=== PATIENT | female | born 1955 | race Caucasian/White ===

== ENCOUNTER 2016-12-06 10:52 | Outpatient (CLI) | payer BC ==
[2016-12-06 12:52] LABS: BASOPHILS % 0.6 (0.0-1.5); EOSINOPHILS % 1.5 % (0.0-6.8); MEAN CORPUSCULAR HEMOGLOBIN 29.3 pg (28.0-34.0); MONOCYTES # 0.4 # k/uL (0.0-0.9); MONOCYTES % 5.1 % (0.0-11.0); NEUTROPHILS # 4.6 # k/uL (1.4-7.7)
[2016-12-06 12:55] LABS: APPEARANCE,URINE Clear (CLEAR); COLOR,URINE Yellow (YELLOW); OCCULT BLOOD,URINE Negative (NEGATIVE); UROBILINOGEN URINE 0.2 Eu (0.2-1.0)
[2016-12-06] MEDS ORDERED: HEPARIN SODIUM,PORCINE 30 UNITS INJ IV ONE (13:00)
[2016-12-06] MEDS ORDERED: SALINE FLUSH 10 ML DISP.SYRIN IVF ONE (13:00)
[2016-12-06 13:14] LABS: eGFR (African) > 60; eGFR (Non-African) > 60
--- NOTE | 2016-12-06 16:02 | Diagnostic Imaging Report ---
NAVNEET COYNE [facility] [address] [facility] [address] [address] Report Submission Date: Dec 06, 2016 3:24:49 PM MODEL HOME SALES GREETER Patient Study Name: SATYA KC Date: Dec 06, 2016 11:13:42 AM MODEL [employer]ER Modality Type: CR Gender: F Description: ABDOMEN : 51 Institution: [facility] Physician: NAVNEET COYNE Supine abdomen History: 2 months of low abdominal pain Findings: Multilevel lumbar spondylosis and moderate colonic stool are observed. There is no bowel obstruction. A 3 mm calcification projects over the left renal silhouette. Impression: Mild constipation and possibly small left renal stone. Electronically signed on Dec 06, 2016 3:24:49 PM MODEL [employer] SALES GREETER by: Janes VILLAVICENCIO
--- NOTE | 2016-12-06 16:03 | Diagnostic Imaging Report ---
NAVNEET COYNE [facility] [address] [facility] [address] [address] Report Submission Date: Dec 06, 2016 3:25:52 PM BOOK CLEANER Patient Study Name: SATYA KC Date: Dec 06, 2016 11:26:54 AM BOOK CLEANER Modality Type: CR Gender: F Description: LOWER EXTREMITY : 51 Institution: [facility] Physician: NAVNEET COYNE Right knee 3 views History: 3 months of the anterior knee pain Findings: A moderate suprapatellar joint effusion and mild to moderate patellofemoral osteoarthritic spurring are observed. There is no fracture or dislocation. Joint space narrowing and subchondral sclerosis are observed in the medial femorotibial compartment. Impression: Two compartment right knee osteoarthritis and moderate joint effusion. Electronically signed on Dec 06, 2016 3:25:52 PM BOOK CLEANER by: Janes VILLAVICENCIO
[2016-12-06 23:51] LABS: LIPASE 63 U/L (13-60)
== END 2016-12-06 10:53 ==
LOC: LAB 10:52 → INF 10:53
PROVIDERS: ATTEND Family Medicine
DX: R10.84 Generalized abdominal pain (principal); M25.561 Pain in right knee; D68.9 Coagulation defect, unspecified; C50.919 Malignant neoplasm of unspecified site of unspecified female breast
CPT/HCPCS: 36415; 73562; 74000; 80053; 81002; 83690; 85025; 85610; 85730; 96523

== ENCOUNTER 2016-12-11 08:53 | Outpatient (CLI) | payer BC | END 2016-12-11 08:54 | LOC: CANPRECLI → RAD 08:53 | PROVIDERS: ATTEND Family Medicine | DX: Z53.9 Procedure and treatment not carried out, unspecified reason (principal) ==

== ENCOUNTER 2017-02-19 13:46 | Outpatient (CLI) | payer BC ==
[2017-02-19] MEDS ORDERED: HEPARIN SODIUM 500 UNIT/5 ML DISP.SYRIN IV ONE (14:00)
[2017-02-19] MEDS ORDERED: SALINE FLUSH 10 ML DISP.SYRIN IVF ONE (14:00)
== END 2017-02-19 13:47 ==
LOC: LAB 13:46
PROVIDERS: ATTEND Nurse Practitioner Adult Health
DX: K59.00 Constipation, unspecified (principal); R10.9 Unspecified abdominal pain; R14.0 Abdominal distension (gaseous); Z12.11 Encounter for screening for malignant neoplasm of colon
CPT/HCPCS: 82784; 83516; J1642

== ENCOUNTER 2017-02-25 07:53 | Day surgery (SDC) | payer BC ==
--- NOTE | 2017-02-25 12:05 | GI Report ---
REFERRING PHYSICIAN: Dr. Margo Ellis JAVA SOFTWARE DEVELOPER: Castro Butler MD PROCEDURE MEDICATION: Propofol as per anesthesia. INDICATIONS: A 61-year-old woman is referred. She has had change in her bowel habits. She tends more toward constipation. This is a screening. She has never had her colon looked at before. She denies bleeding. She was tried on Linzess 145 mcg and apparently it made her symptoms worse as far as a lot of cramps. Family history with father who has Crohn's disease and had surgery. PROCEDURE PERFORMED: Colonoscopy. PROCEDURE: An Olympus video colonoscope was advanced to the rectum. A very atonic redundant colon and it took some maneuvering to finally reach the cecum. The appendiceal orifice is normal. One glimpse in the terminal ileum looked normal. On slow withdrawal, we had to lavage and suction a number of areas to help clear the prep. The ascending colon and transverse colon had redundancy. No obvious intraluminal lesions noted. Descending colon and sigmoid, again, redundancy. No obvious intraluminal lesions were noted. Retroflexion of the rectum was normal. Patient tolerated the procedure well. FINDINGS: Atonic redundant colon to the cecum and a glimpse of the terminal ileum was also normal. RECOMMENDATIONS: 1. Would increase fiber in the diet. 2. Add MiraLAX. 3. Consider re-looking at her colon within 10 years, sooner if clinically indicated. cc: Dr. Margo VILLAVICENCIO
== END 2017-02-25 07:54 ==
LOC: OPSURG 07:53
PROVIDERS: ATTEND Internal Medicine Gastroenterology
DX: Z12.11 Encounter for screening for malignant neoplasm of colon (principal); K59.00 Constipation, unspecified; K59.8 Other specified functional intestinal disorders; Z83.79 Family history of other diseases of the digestive system
CPT/HCPCS: 45378; J7120

== ENCOUNTER 2017-07-09 12:55 | Outpatient (CLI) | payer BC ==
--- NOTE | 2017-07-09 15:20 | Diagnostic Imaging Report ---
NAVNEET COYNE [facility] [address] [facility] [address] [place], [place]. [address] Report Submission Date: Jul 09, 2017 2:40:25 PM CDT Patient Study Name: SATYA KC Date: Jul 09, 2017 1:22:58 PM CDT Modality Type: CT\SR Gender: F Description: CT ABD & PELVIS W/O CO : 51 Institution: [facility] Physician: NAVNEET COYNE Examination: CT Abdomen/pelvis History: Left-sided discomfort. The wall the Comparison exams: None available Technique: CT Abdomen/pelvis without contrast protocol. Findings: Liver, spleen, adrenal glands, pancreas and gallbladder are without irregularity given exam technique. No gallstone. Kidneys demonstrate 3 mm calyceal calcifications bilaterally. Ureters are nondilated in their course through the abdomen and pelvis. No central calcifications. Bladder margins without gross abnormality. Pelvic phleboliths. Abdominal aorta without aneurysmal dilation or peripheral sclerotic disease. Cardiac silhouette not enlarged. Bowel without contrast limiting evaluation. No evidence for acute mesenteric inflammation or free air. Stool throughout the large bowel limiting sensitivity. Osseous structures demonstrate degenerative changes. Lung bases parenchymal scarring. No effusion. Absence of the right breast. Impression: Bilateral nephrolithiasis. No evidence for ureterolithiasis. No evidence for acute abdominal inflammatory process. No gallstone. No abnormal bowel dilation. Prior right mastectomy. Electronically signed on Jul 09, 2017 2:40:25 PM CDT by: Shayan VILLAVICENCIO
== END 2017-07-09 12:56 ==
LOC: RAD 12:55
PROVIDERS: ATTEND Family Medicine
DX: N20.0 Calculus of kidney (principal)
CPT/HCPCS: 74176

== ENCOUNTER 2018-01-28 15:58 | Outpatient (CLI) | payer BC ==
--- NOTE | 2018-01-28 17:37 | Diagnostic Imaging Report ---
ALISSON GASTELUM [facility] [address] [facility] [address] Report Submission Date: Jan 28, 2018 5:34:24 PM CDT Patient Study Name: SATYA KC Date: Jan 28, 2018 4:50:38 PM CDT Modality Type: DX Gender: F Description: SPINE : 51 Institution: [facility] Physician: ALISSON GASTELUM Examination: Plain film lumbar spine History: PAIN IN LOW BACK AFTER FALL X 1 WEEK AGO (Hx) Findings: 3 views of the lumbar spine demonstrate osteopenia. Anterior narrowing of L1 by approximately 30 to 40%. Scattered osteophytes and disc space narrowing. Slight curvature to the right. Significant stool within the overlying large bowel. Impression: L1 compression deformity compression deformity: Approximately 30 to 40% - chronicity indeterminate without older exams. Generalized degenerative changes, osteopenia, and curvature. Significant large bowel stool - constipation. Electronically signed on Jan 28, 2018 5:34:24 PM CDT by: Shayan VILLAVICENCIO
== END 2018-01-28 16:00 ==
LOC: RAD 15:58
PROVIDERS: ATTEND Physician Assistant
DX: M54.5 Low back pain (principal); W19.XXXA Unspecified fall, initial encounter; Y92.9 Unspecified place or not applicable
CPT/HCPCS: 72100

== ENCOUNTER 2018-02-15 20:13 | Emergency (ER) | payer BC ==
[2018-02-15] MEDS ORDERED: ONDANSETRON HCL/PF 4 MG/ 2ML VIAL IVP ONE (20:27)
[2018-02-15] MEDS ORDERED: MORPHINE SULFATE 4 MG/ML PREFILLED SYR IVP ONE ×2 (20:27→20:46)
[2018-02-15] MEDS ORDERED: 0.9 % SODIUM CHLORIDE 1,000 ML IV ONE (20:27)
--- NOTE | 2018-02-15 20:37 | ED Physician Documentation ---
Fall - HISTORIAN Historian: patient - HPI Stated Complaint: Recent weakness, today with temp and fall causing LBP Chief Complaint: Fall Additional Information: Fell at home just prior to arrival in ER per EMS. She's not sure what made her fall or how she landed. Fell onto carpet. Denies LOC. Low back hurts. No new numbness or tingling since the fall. Completed chemo for breast cancer in January. Has been falling frequently. Has had neuropathies in the last few weeks. Urinated only 1-2 x today. Onset: just prior to arrival Where: home Associated Symptoms:: no loss of consciousness Location of Pain/Injury: lower back - ROS CONST: fever (100.5 on arrival in ER) - PAST HX Past History: other (breast cancer) Allergies/Adverse Reactions: Allergies Allergy/AdvReac Type Severity Reaction Status Date / Time codeine AdvReac Unknown Nausea/Vomi Verified 02/15/18 20:29 ting - SOCIAL HX Smoking History: non-smoker - FAMILY HX Family History: no significant history - VITAL SIGNS Vital Signs: Vital Signs Temp Pulse Resp BP Pulse Ox 100.5 F H 128 H 18 141/63 96 02/15/18 20:14 02/15/18 20:14 02/15/18 20:14 02/15/18 20:14 02/15/18 20:14 - REVIEWED ASSESSMENTS Nursing Assessment Reviewed: Yes Vitals Reviewed: Yes Progress - Progress Progress: 2243, phone call from radiologist, Dr. Ritter. Pt has acute compression fx L1 with retropulsion into spinal canal, with 15% reduction of spinal canal Name: SATYA KC Date: February 15, 2018 9:50:00 PM CDT Modality Type: CT\SR Gender: F Description: CT L-SPINE W/O CONTRAS : 51 Institution: [facility] Physician: JUAN CESAR - ER CT lumbar spine Date of examination: February 15, 2018. CLINICAL HISTORY: FALL; LUMBAR PAIN; RECENT CHEMO (Hx) / ITS.REASON fall, recent chemo, lumbar pain TECHNIQUE: 3 mm contiguous axial images of the lumbar spine with sagittal and coronal reconstructions. FINDINGS: There is slight right lumbar scoliosis. A compression fracture of the L1 vertebral body is present with posterior retropulsion bone into the spinal canal reducing the spinal canal diameter by approximately 15%. The fracture extends through the superior endplate of L1 with minimal loss of vertebral body height. There is mild spinal canal stenosis at T12/L1 as a result of the retropulsion of bone. L1/2 disc bulging and generative disc space narrowing are present that creates mild spinal canal stenosis and mild bilateral neural foraminal narrowing. L2/L3 degenerative disc space narrowing with disc bulging and endplate sclerosis is present. There is mild spinal canal stenosis at L2/L3. L3/L4 disc bulging and mild spinal canal stenosis is present. L4/L5 disc bulging and mild spinal canal stenosis with mild bilateral neural foraminal narrowing is present. L5/S1 disc bulging with mild spinal canal stenosis and mild bilateral neural foraminal narrowing is present. IMPRESSION: L1 compression fracture with posterior retropulsion of bone into the spinal canal. Multilevel disc bulging and multilevel mild spinal canal stenosis. The critical results were communicated to Dr. Cesar at 10:45 pm CDT. Electronically signed on February 15, 2018 10:43:49 PM CDT by: Yee Ritter [id number], accepted for transfer to [facility] ER per Dr. Ag ED Results Lab/Radiology - Orders Orders: ED Orders Category Date Time Status Access Port NOW Care 02/15/18 20:[address] L-SPINE W/O CONTRAST Stat Exams 02/15/18 Ordered CBC/PLATELET/DIFF Routine Lab 02/15/18 Ordered CMP Routine Lab 02/15/18 Ordered Morphine Sulfate [DepoDUR] Med 02/15/18 20:27 Once 4 mg IVP NOW ONE NORMAL SALINE @ 500 MLS/HR ( 1000ml BOLUS) Med 02/15/18 20:27 Ordered 0.9 % Sodium Chloride [Normal Saline] 1,000 ml IV Q2H Ondansetron HCl/Pf [Zofran 4 mg/2 ml] Med 02/15/18 20:27 Once 4 mg IVP NOW ONE Fall Physical Exam - Physical Exam General Appearance: moderate distress Head: no obvious injury Neck: non-tender, painless ROM, trachea midline Eye: lids & conjunct. nml ENT: nml external inspection (except dry, flaking lips. Oropharynx dry. ) Resp/CVS: breath sounds nml, heart sounds nml, other (bilateral mastectomies) Abdomen: soft, normal bowel sounds Neuro: CN's nml as tested, sensation nml, motor nml Back: no CVA tenderness, no vertebral tenderness (no step off. No paraspinous muscle spasm detected. ) Extremities: pelvis stable, no pedal edema, nml ROM (rolls to left side) Joint: joints nml (gait not tested due to LBP) Discharge Clincal Impression: Compression fracture of L1 lumbar vertebra Qualifiers: Encounter type: initial encounter Fracture type: closed Qualified Code(s): S32.010A - Wedge compression fracture of first lumbar vertebra, initial encounter for closed fracture Referrals: Margo Ellis MD [Primary Care Provider] - 2 Days Condition: Fair Disposition: 02 XFER SHT-TRM HOSP Decision to Admit: NO Decision Time: 22:58
[2018-02-15 22:23] LABS: BASOPHILS % 0.2 (0.0-1.5); EOSINOPHILS % 0.3 % (0.0-6.8); MEAN CORPUSCULAR HEMOGLOBIN 28.8 pg (28.0-34.0); MEAN CORPUSCULAR VOLUME 85.8 fl (80.0-100.0); MONOCYTES % 5.7 % (0.0-11.0); NEUTROPHILS # 11.2 # k/uL (1.4-7.7)
[2018-02-15] MEDS ORDERED: HYDROmorphone HCL/PF 2 MG/ML DISP.SYRIN IVP ONE (22:30)
[2018-02-15] MEDS ORDERED: 0.9 % SODIUM CHLORIDE 1,000 ML IV SCH (23:30)
[2018-02-15 23:45] VITALS: BP 120/63
--- NOTE | 2018-02-16 10:48 | Diagnostic Imaging Report ---
JUAN MCGILL [facility] [address] [facility] [address] [place], [place]. [address] Report Submission Date: February 15, 2018 10:43:49 PM CDT Patient Study Name: SATYA KC Date: February 15, 2018 9:50:00 PM CDT Modality Type: CT\SR Gender: F Description: CT L-SPINE W/O CONTRAS : 51 Institution: [facility] Physician: JUAN MCGILL CT lumbar spine Date of examination: February 15, 2018. CLINICAL HISTORY: FALL; LUMBAR PAIN; RECENT CHEMO (Hx) / ITS.REASON fall, recent chemo, lumbar pain TECHNIQUE: 3 mm contiguous axial images of the lumbar spine with sagittal and coronal reconstructions. FINDINGS: There is slight right lumbar scoliosis. A compression fracture of the L1 vertebral body is present with posterior retropulsion bone into the spinal canal reducing the spinal canal diameter by approximately 15%. The fracture extends through the superior endplate of L1 with minimal loss of vertebral body height. There is mild spinal canal stenosis at T12/L1 as a result of the retropulsion of bone. L1/2 disc bulging and generative disc space narrowing are present that creates mild spinal canal stenosis and mild bilateral neural foraminal narrowing. L2/L3 degenerative disc space narrowing with disc bulging and endplate sclerosis is present. There is mild spinal canal stenosis at L2/L3. L3/L4 disc bulging and mild spinal canal stenosis is present. L4/L5 disc bulging and mild spinal canal stenosis with mild bilateral neural foraminal narrowing is present. L5/S1 disc bulging with mild spinal canal stenosis and mild bilateral neural foraminal narrowing is present. IMPRESSION: L1 compression fracture with posterior retropulsion of bone into the spinal canal. Multilevel disc bulging and multilevel mild spinal canal stenosis. The critical results were communicated to Dr. Mcgill at 10:45 pm CDT. Electronically signed on February 15, 2018 10:43:49 PM CDT by: Yee VILLAVICENCIO
== END 2018-02-15 23:08 | disposition short-term general hospital (02) ==
LOC: ED 20:13
DX: S32.010A Wedge compression fracture of first lumbar vertebra, initial encounter for closed fracture (principal); W19.XXXA Unspecified fall, initial encounter; Y93.9 Activity, unspecified; Y92.009 Unspecified place in unspecified non-institutional (private) residence as the place of occurrence of the external cause
CPT/HCPCS: 72131; 80053; 85025; J1170; J2270; J2405; J7030; 96365; 96366; 96375; 99283

== ENCOUNTER 2018-03-04 09:54 | Inpatient (IN) | payer BC ==
[2018-03-04] MEDS ORDERED: ZOLPIDEM TARTRATE 5 MG TABLET PO PRN (13:02)
[2018-03-04 13:51] VITALS: BMI 31.4
[2018-03-04] MEDS ORDERED: traZODone HCL 50 MG TABLET PO SCH (14:00)
[2018-03-04] MEDS: ENOXAPARIN SODIUM 30 MG/0.3 ML DISP.SYRIN SQ SCH (14:51)
[2018-03-04] MEDS ORDERED: DOCUSATE SODIUM 100 MG CAPSULE PO PRN (15:59)
[2018-03-04] MEDS ORDERED: MAGNESIUM CITRATE 296 ML BOTTLE PO PRN (15:59)
[2018-03-04] MEDS ORDERED: oxyCODONE HCL 5 MG TABLET ONE (16:14)
[2018-03-04] MEDS: oxyCODONE HCL 5 MG TABLET PO PRN (16:16)
[2018-03-04] MEDS ORDERED: DICYCLOMINE HCL 20 MG TABLET PO PRN (16:22)
[2018-03-04] MEDS: traZODone HCL 50 MG TABLET PO SCH ×3 (16:27→20:09)
--- NOTE | 2018-03-04 16:29 | History and Physical Report ---
History of Present Illnes - History of Present Illness Reason for Visit: gait disturbance, IV abx for MRSA to port History of Present Illness: 62-year-old white female who was recently admitted to the [facility] in clinic for mental status changes and back pain. Patient has fallen several times. Patient was subsequently found to have an L1 burst fracture. Patient did undergo kyphroplasty without much relief of her pain. Patient has been getting oxycodone 5-10mg po q 6 hours, fentanyl 75mcg patch and lidoderm patch to help control her pain. Patient had been on about regimen to help with constipation problems related to the narcotic pain medications. Patient states he still is having a lot of pain with movement. Patient was also found to have a methicillin-resistant staph aureus sepsis with the source being a port to the right anterior chest area. Patient is currently on IV Cefozolin which is to be continued until March 18. Patient did have her port line removed and did have a picc line place for IV anabiotic. Patient was also found to be anemic and was transfused when unit of packed RBCs during her hospital admission. 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 Patient echocardiogram showed a decrease in her ejection fraction from 55% in October to 46% during this admission. Three her course of hospitalization patient became weak with an unsteady gait. It was felt that she would benefit from ongoing physical and occupational therapy was admitted to this institution for that and to complete her IV antibiotic therapy. 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 denies: Pneumococcal Vaccine, Mammogram Influenza Vaccine: Current for this Influenza Season Pneumonia Vaccine: No Resuscitation Status: Resusciation Status Resuscitation Status No Intubation/Mech Vent - Unable to Obtain History Unable to Obtain: No Review of Systems - Review of Systems Constitutional: Fever (none for several days), Chills (none for several days). negative: Sweats, Weakness Eyes: negative: pain, vision change ENT: negative: Ear Pain, Ear Discharge, Nose Pain, Nose Discharge, Nose Congestion, Mouth Pain, Mouth Swelling Respiratory: negative: Cough, Dry, Shortness of Breath, Hemoptysis, SOB with Excertion, Pleuritic Pain, Sputum, Wheezing Cardiovascular: Edema. negative: Chest Pain, Palpitations Gastrointestinal: Constipation. negative: Nausea, Vomiting, Abdominal Pain, Diarrhea, Melena, Hematochezia Genitourinary: negative: Dysuria, Frequency, Incontinence, Hematuria Musculoskeletal: Back Pain. negative: Leg Pain Skin: negative: Rash, Lesions Neurological: Weakness (generalized). negative: Numbness, Incoordination, Seizures - Medications/Allergies Allergies/Adverse Reactions: Allergies Allergy/AdvReac Type Severity Reaction Status Date / Time codeine AdvReac Unknown Nausea/Vomi Verified 02/15/18 20:29 ting Home Medications: Home Medications Alprazolam [Xanax] 0.5 mg PO BID PRN 03/04/18 Anastrozole [Arimidex] 1 mg PO DAILY 03/04/18 Bisacodyl [Laxative] 5 mg PO HS PRN 03/04/18 Calcitonin,[place],Synthetic [Fortical] 1 spray IN DAILY 03/04/18 Calcium Carb 600Mg [Caltrate] 600 mg PO BID 03/04/18 Carvedilol [Coreg] 12.5 mg PO BID 03/04/18 Cefazolin Sodium in 0.9 % NaCl [Cefazolin 2 G/100 ml-0.9% NaCl] 2 gm IV TID Cholecalciferol [Vitamin D-3] 1,000 unit PO BID 03/04/18 Docusate Sodium [Colace] 100 mg PO PRN PRN 03/04/18 Fentanyl 1 each TD Q3 03/04/18 Lidocaine [Lidocare] 1 each TOP DAILY 03/04/18 Lisinopril [Prinivil] 10 mg PO DAILY 03/04/18 Magnesium Citrate [Citrate of Magnesia] 60 ml PO DAILY PRN 03/04/18 Multivit/Folic Acid/Vit K1 [One-A-Day Women's 50 Plus Tab] 1 tab PO DAILY Ondansetron [Zuplenz] 8 mg PO TID PRN 03/04/18 Oxycodone HCl [Oxaydo] 5 mg PO PRN PRN 03/04/18 Polyethylene Glycol 3350 [Miralax] 17 gm PO 1100 03/04/18 Sennosides [Senna] 8.6 mg PO BID 03/04/18 Trazodone HCl 100 mg PO HS 03/04/18 Current Inpatient Medications: Current Inpatient Medications Alprazolam (Xanax) 0.5 mg PO BID PRN PRN Reason: Anxiety Amlodipine Besylate (Norvasc) 5 mg PO DAILY [facility] Anastrozole (Arimidex) 1 mg PO DAILY [facility] Benazepril HCl (Lotensin) 20 mg PO DAILY [facility] Calcitonin [place] (Fortical) 1 spray NS DAILY [facility] Calcium Carbonate (Tums) 500 mg PO BID [facility] Carvedilol (Coreg) 12.5 mg PO BID [facility] Cefazolin Sodium (Ancef) 2 gm IV Q8 [facility] Stop: 03/18/18 09:00 Cholecalciferol (Vitamin D-3) 1,000 unit PO BID [facility] Cyclobenzaprine HCl (Flexeril) 5 mg PO DAILY [facility] Dicyclomine HCl (Bentyl) 10 mg PO BID PRN PRN Reason: Irritable Bowel Syndrome Docusate Sodium (Colace) 100 mg PO PRN PRN PRN Reason: Constipation Enoxaparin Sodium (Lovenox) 30 mg SQ Q12H [facility] Stop: 03/11/18 01:01 Last Admin: 03/04/18 14:51 Dose: 30 mg Escitalopram Oxalate (Lexapro) 10 mg PO DAILY [facility] Fentanyl (Duragesic) 2 each TD Q72 [facility] Stop: 03/20/18 08:59 Lidocaine (Lidoderm) 1 patch TP DIRECTED [facility] Magnesium Citrate (Citrate Of Magnesia) 60 ml PO DAILY PRN PRN Reason: Constipation Multivitamins (Tab-A-Shravan) 1 each PO DAILY [facility] Oxycodone HCl (Percolone) 5 mg PO Q6 PRN PRN Reason: Severe Pain Last Admin: 03/04/18 16:16 Dose: 5 mg Polyethylene Glycol (Miralax) 17 gm PO 1100 [facility] Trazodone HCl (Desyrel) 100 mg PO [facility] Exam - Exam Vital Signs: Vital Signs (72 hours) 03/04/18 12:36 Temperature 97.4 F L Pulse Rate [ 74 Pulse ox] Respiratory 20 Rate Blood Pressure 153/68 [Left Arm] O2 Sat by Pulse 98 Oximetry General: Alert, Oriented to Person, Oriented to Place, Oriented to Time, Cooperative HEENT: Atraumatic, PERRLA, EOMI, Mouth Mucous membr. moist/[place], Nose Mucous membr. moist/[place], Dentition Normal Neck: Normal Range of Motion. No: Lymphadenopathy Carotids: WNL Thyroid: WNL Lungs: Clear to auscultation, Normal air movement, Speaks full Sentences. No: Wheezes, Rales, Rhonchi Cardiovascular: Regular rate, Normal S1, Normal S2, No murmurs Abdomen: Normal bowel sounds, Soft, No tenderness, No hepatospenomegaly, No masses Integumentary: Normal, [place], Warm, Dry Extremities: No clubbing, No cyanosis, Normal pulses, No tenderness/swelling, Other (1-2 plus edema bilaterally) Neurological: Normal speech, Strength Equal Bilat, Normal tone, Sensation intact , Cranial nerves 3-12 NL, Reflexes 2+ Psych/Mental Status: Mental status NL, Mood NL, Appropriate Affect, Intact Judgment Assessment/Plan - Assessment/Plan (1) Bacteremia associated with intravascular line Status: Acute Current Visit: Yes Assessment: Will continue with antibiotic until March 19 (2) Compression fracture of L1 lumbar vertebra Status: Acute Current Visit: No Qualifiers: Encounter type: initial encounter Fracture type: closed Qualified Code(s) : S32.010A - Wedge compression fracture of first lumbar vertebra, initial encounter for closed fracture Assessment: continue with pain medication and will get PT and OT (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
[2018-03-04] MEDS: CALCIUM CARB 500 MG TAB.CHEW PO SCH ×2 (16:37→20:10)
[2018-03-04] MEDS ORDERED: LIDOCAINE 5% ADH..PATCH TP SCH (17:00)
[2018-03-04] MEDS ORDERED: traMADol HCL 50 MG TABLET PO SCH (17:00)
[2018-03-04] MEDS: CARVEDILOL 12.5 MG TABLET PO SCH (20:09)
[2018-03-04] MEDS: CHOLECALCIFEROL (VIT D3) 1,000 UNIT TABLET PO SCH (20:10)
[2018-03-04] MEDS ORDERED: TRAZODONE HCL 100 MG PO SCH (21:00)
[2018-03-04] MEDS ORDERED: ALPRAZOLAM 0.5 MG TABLET PO SCH (21:00)
[2018-03-04] MEDS: ceFAZolin SODIUM 1 GM VIAL IV SCH (23:45)
[2018-03-05] MEDS: oxyCODONE HCL 5 MG TABLET PO PRN ×3 (00:14→20:58)
[2018-03-05] MEDS: ENOXAPARIN SODIUM 30 MG/0.3 ML DISP.SYRIN SQ SCH ×2 (00:14→13:16)
[2018-03-05] MEDS: ceFAZolin SODIUM 1 GM VIAL IV SCH ×3 (05:38→20:21)
[2018-03-05] MEDS ORDERED: HEPARIN SODIUM PORCINE IV SCH (09:00)
[2018-03-05] MEDS: ANASTROZOLE 1 MG TABLET PO SCH (09:07)
[2018-03-05] MEDS: CARVEDILOL 12.5 MG TABLET PO SCH ×2 (09:08→20:57)
[2018-03-05] MEDS: ESCITALOPRAM OXALATE 10 MG TABLET PO SCH (09:08)
[2018-03-05] MEDS: CHOLECALCIFEROL (VIT D3) 1,000 UNIT TABLET PO SCH ×2 (09:08→20:57)
[2018-03-05] MEDS: BENAZEPRIL HCL 10 MG TABLET PO SCH (09:09)
[2018-03-05] MEDS: CALCIUM CARB 500 MG TAB.CHEW PO SCH ×2 (09:09→20:21)
[2018-03-05] MEDS: MULTIVITAMIN 1 EACH TABLET PO SCH (09:09)
[2018-03-05] MEDS: amLODIPine BESYLATE 5 MG TABLET PO SCH (09:09)
[2018-03-05] MEDS: CALCITONIN SALMON SYNTHETIC NS SCH (09:11)
[2018-03-05] MEDS: POLYETHYLENE GLYCOL 3350 17 GM POWD.PACK PO SCH (11:52)
[2018-03-05] MEDS: HEPARIN SODIUM 500 UNIT/5 ML DISP.SYRIN IV SCH ×2 (13:16→21:00)
[2018-03-05] MEDS ORDERED: ONDANSETRON HCL/PF 4 MG/ 2ML VIAL IVP ONE (16:06)
[2018-03-05] MEDS ORDERED: CYCLOBENZAPRINE HCL 5 MG TABLET PO SCH (17:00)
[2018-03-05] MEDS: ONDANSETRON HCL/PF 4 MG/ 2ML VIAL IVP PRN (17:01)
[2018-03-05] MEDS: traZODone HCL 50 MG TABLET PO SCH (20:57)
[2018-03-06] MEDS: ENOXAPARIN SODIUM 30 MG/0.3 ML DISP.SYRIN SQ SCH ×3 (01:15→20:22)
[2018-03-06] MEDS: ceFAZolin SODIUM 1 GM VIAL IV SCH ×3 (04:41→21:47)
[2018-03-06] MEDS: ONDANSETRON HCL/PF 4 MG/ 2ML VIAL IVP PRN (05:18)
[2018-03-06] MEDS: HEPARIN SODIUM 500 UNIT/5 ML DISP.SYRIN IV SCH ×3 (05:23→23:18)
[2018-03-06] MEDS: CALCITONIN SALMON SYNTHETIC NS SCH (08:12)
[2018-03-06] MEDS: CALCIUM CARB 500 MG TAB.CHEW PO SCH ×2 (08:15→20:20)
[2018-03-06] MEDS: BENAZEPRIL HCL 10 MG TABLET PO SCH (08:16)
[2018-03-06] MEDS: ESCITALOPRAM OXALATE 10 MG TABLET PO SCH (08:16)
[2018-03-06] MEDS: CHOLECALCIFEROL (VIT D3) 1,000 UNIT TABLET PO SCH ×2 (08:17→20:21)
[2018-03-06] MEDS: CARVEDILOL 12.5 MG TABLET PO SCH ×2 (08:17→20:21)
[2018-03-06] MEDS: oxyCODONE HCL 5 MG TABLET PO PRN ×3 (08:17→20:22)
[2018-03-06] MEDS: amLODIPine BESYLATE 5 MG TABLET PO SCH (08:20)
[2018-03-06] MEDS: MULTIVITAMIN 1 EACH TABLET PO SCH (08:20)
[2018-03-06] MEDS: CYCLOBENZAPRINE HCL 5 MG TABLET PO PRN (08:23)
[2018-03-06] MEDS: fentaNYL 25 MCG PATCH TD SCH (08:24)
[2018-03-06] MEDS ORDERED: ENOXAPARIN SODIUM 30 MG/0.3 ML DISP.SYRIN SQ SCH (10:04)
[2018-03-06] MEDS: POLYETHYLENE GLYCOL 3350 17 GM POWD.PACK PO SCH (10:56)
[2018-03-06] MEDS: ANASTROZOLE 1 MG TABLET PO SCH (13:34)
[2018-03-06] MEDS: traZODone HCL 50 MG TABLET PO SCH (20:20)
[2018-03-07] MEDS: ceFAZolin SODIUM 1 GM VIAL IV SCH ×2 (05:09→13:34)
[2018-03-07] MEDS: HEPARIN SODIUM 500 UNIT/5 ML DISP.SYRIN IV SCH ×2 (07:15→13:58)
[2018-03-07] MEDS: ONDANSETRON HCL/PF 4 MG/ 2ML VIAL IVP PRN (08:40)
[2018-03-07] MEDS: POLYETHYLENE GLYCOL 3350 17 GM POWD.PACK PO SCH (09:01)
[2018-03-07] MEDS: CALCIUM CARB 500 MG TAB.CHEW PO SCH ×2 (09:23→21:09)
[2018-03-07] MEDS: CARVEDILOL 12.5 MG TABLET PO SCH ×2 (09:23→21:09)
[2018-03-07] MEDS: ANASTROZOLE 1 MG TABLET PO SCH (09:24)
[2018-03-07] MEDS: CALCITONIN SALMON SYNTHETIC NS SCH (09:25)
[2018-03-07] MEDS: amLODIPine BESYLATE 5 MG TABLET PO SCH (09:26)
[2018-03-07] MEDS: ESCITALOPRAM OXALATE 10 MG TABLET PO SCH (09:26)
[2018-03-07] MEDS: MULTIVITAMIN 1 EACH TABLET PO SCH (09:26)
[2018-03-07] MEDS: oxyCODONE HCL 5 MG TABLET PO PRN ×3 (09:27→22:53)
[2018-03-07] MEDS: ENOXAPARIN SODIUM 30 MG/0.3 ML DISP.SYRIN SQ SCH ×2 (09:28→22:48)
[2018-03-07] MEDS: CYCLOBENZAPRINE HCL 5 MG TABLET PO PRN (09:29)
[2018-03-07] MEDS: BENAZEPRIL HCL 10 MG TABLET PO SCH (09:32)
[2018-03-07] MEDS: CHOLECALCIFEROL (VIT D3) 1,000 UNIT TABLET PO SCH ×2 (09:32→21:10)
[2018-03-07] MEDS: ALPRAZOLAM 0.5 MG TABLET PO PRN (12:25)
[2018-03-07] MEDS: OXYMETAZOLINE HCL 0.05% NASAL SPRAY NS SCH ×2 (12:59→21:26)
[2018-03-07 13:49] LABS: BASOPHILS % 0.4 (0.0-1.5); EOSINOPHILS % 2.5 % (0.0-6.8); MEAN CORPUSCULAR HEMOGLOBIN 29.1 pg (28.0-34.0); MONOCYTES % 7.5 % (0.0-11.0); NEUTROPHILS # 5.6 # k/uL (1.4-7.7)
[2018-03-07] MEDS: traZODone HCL 50 MG TABLET PO SCH (21:08)
[2018-03-07] MEDS: LACTOBACILLUS ACIDOPHILUS CAPS PO SCH (21:11)
[2018-03-08] MEDS: ceFAZolin SODIUM 1 GM VIAL IV SCH ×3 (05:00→21:41)
[2018-03-08] MEDS: HEPARIN SODIUM PORCINE IV SCH ×4 (05:00→22:58)
[2018-03-08] MEDS: oxyCODONE HCL 5 MG TABLET PO PRN ×3 (08:02→22:03)
[2018-03-08] MEDS: CARVEDILOL 12.5 MG TABLET PO SCH ×2 (08:03→21:44)
[2018-03-08] MEDS: OXYMETAZOLINE HCL 0.05% NASAL SPRAY NS SCH ×2 (08:03→21:44)
[2018-03-08] MEDS: ANASTROZOLE 1 MG TABLET PO SCH (08:03)
[2018-03-08] MEDS: amLODIPine BESYLATE 5 MG TABLET PO SCH (08:04)
[2018-03-08] MEDS: LACTOBACILLUS ACIDOPHILUS CAPS PO SCH ×2 (08:04→21:44)
[2018-03-08] MEDS: CALCITONIN SALMON SYNTHETIC NS SCH (08:04)
[2018-03-08] MEDS: ESCITALOPRAM OXALATE 10 MG TABLET PO SCH (08:04)
[2018-03-08] MEDS: BENAZEPRIL HCL 10 MG TABLET PO SCH (08:04)
[2018-03-08] MEDS: CHOLECALCIFEROL (VIT D3) 1,000 UNIT TABLET PO SCH ×2 (08:05→21:44)
[2018-03-08] MEDS: MULTIVITAMIN 1 EACH TABLET PO SCH (08:05)
[2018-03-08] MEDS: CALCIUM CARB 500 MG TAB.CHEW PO SCH ×2 (08:05→21:43)
[2018-03-08] MEDS: ONDANSETRON HCL 4 MG TAB.RAPDIS PO PRN (09:14)
[2018-03-08] MEDS: ENOXAPARIN SODIUM 30 MG/0.3 ML DISP.SYRIN SQ SCH (10:23)
[2018-03-08] MEDS: POLYETHYLENE GLYCOL 3350 17 GM POWD.PACK PO SCH (11:23)
[2018-03-08] MEDS ORDERED: 0.9 % SODIUM CHLORIDE 100 ML IV ONE ×2 (12:24→21:30)
[2018-03-08] MEDS ORDERED: HEPARIN SODIUM 500 UNIT/5 ML DISP.SYRIN IV ONE (12:24)
[2018-03-08] MEDS: traZODone HCL 50 MG TABLET PO SCH (21:43)
[2018-03-09] MEDS ORDERED: 0.9 % SODIUM CHLORIDE 100 ML IV ONE ×3 (00:25→23:41)
[2018-03-09] MEDS: ceFAZolin SODIUM 1 GM VIAL IV SCH ×3 (05:16→20:34)
[2018-03-09] MEDS: HEPARIN SODIUM PORCINE IV SCH ×3 (06:23→21:04)
[2018-03-09] MEDS: oxyCODONE HCL 5 MG TABLET PO PRN ×3 (08:12→20:34)
[2018-03-09] MEDS: ANASTROZOLE 1 MG TABLET PO SCH (08:56)
[2018-03-09] MEDS: OXYMETAZOLINE HCL 0.05% NASAL SPRAY NS SCH (08:56)
[2018-03-09] MEDS: CARVEDILOL 12.5 MG TABLET PO SCH ×2 (08:57→20:34)
[2018-03-09] MEDS: CALCITONIN SALMON SYNTHETIC NS SCH (09:03)
[2018-03-09] MEDS: ESCITALOPRAM OXALATE 10 MG TABLET PO SCH (09:04)
[2018-03-09] MEDS: CHOLECALCIFEROL (VIT D3) 1,000 UNIT TABLET PO SCH ×2 (09:05→20:34)
[2018-03-09] MEDS: CALCIUM CARB 500 MG TAB.CHEW PO SCH ×2 (09:07→20:34)
[2018-03-09] MEDS: amLODIPine BESYLATE 5 MG TABLET PO SCH (09:07)
[2018-03-09] MEDS: LACTOBACILLUS ACIDOPHILUS CAPS PO SCH ×2 (09:17→20:35)
[2018-03-09] MEDS: MULTIVITAMIN 1 EACH TABLET PO SCH (09:18)
[2018-03-09] MEDS: BENAZEPRIL HCL 10 MG TABLET PO SCH (09:18)
[2018-03-09] MEDS: fentaNYL 25 MCG PATCH TD SCH (09:20)
[2018-03-09] MEDS: POLYETHYLENE GLYCOL 3350 17 GM POWD.PACK PO SCH (11:54)
[2018-03-09] MEDS: ONDANSETRON HCL 4 MG TAB.RAPDIS PO PRN (12:36)
[2018-03-09] MEDS: DICYCLOMINE HCL 20 MG TABLET PO SCH ×3 (13:36→20:35)
[2018-03-09] MEDS: ALPRAZOLAM 0.5 MG TABLET PO PRN (17:53)
[2018-03-09] MEDS ORDERED: HEPARIN SODIUM 500 UNIT/5 ML DISP.SYRIN IV ONE (19:37)
[2018-03-09] MEDS: traZODone HCL 50 MG TABLET PO SCH (20:34)
[2018-03-10] MEDS: oxyCODONE HCL 5 MG TABLET PO PRN ×3 (02:00→14:29)
[2018-03-10] MEDS: ceFAZolin SODIUM 1 GM VIAL IV SCH ×4 (05:23→21:00)
[2018-03-10] MEDS: HEPARIN SODIUM PORCINE IV SCH ×3 (06:26→22:34)
[2018-03-10] MEDS: CYCLOBENZAPRINE HCL 5 MG TABLET PO PRN ×2 (08:03→18:35)
[2018-03-10] MEDS ORDERED: 0.9 % SODIUM CHLORIDE 100 ML IV ONE ×2 (08:59→20:24)
[2018-03-10] MEDS: ANASTROZOLE 1 MG TABLET PO SCH (09:02)
[2018-03-10] MEDS: CARVEDILOL 12.5 MG TABLET PO SCH ×2 (09:03→20:48)
[2018-03-10] MEDS: ESCITALOPRAM OXALATE 10 MG TABLET PO SCH (09:04)
[2018-03-10] MEDS: CALCITONIN SALMON SYNTHETIC NS SCH (09:04)
[2018-03-10] MEDS: CALCIUM CARB 500 MG TAB.CHEW PO SCH ×2 (09:04→20:49)
[2018-03-10] MEDS: CHOLECALCIFEROL (VIT D3) 1,000 UNIT TABLET PO SCH ×2 (09:05→20:49)
[2018-03-10] MEDS: MULTIVITAMIN 1 EACH TABLET PO SCH (09:07)
[2018-03-10] MEDS: amLODIPine BESYLATE 5 MG TABLET PO SCH (09:10)
[2018-03-10] MEDS: DICYCLOMINE HCL 20 MG TABLET PO SCH ×4 (09:10→20:48)
[2018-03-10] MEDS: LACTOBACILLUS ACIDOPHILUS CAPS PO SCH ×2 (09:10→20:49)
[2018-03-10] MEDS: BENAZEPRIL HCL 10 MG TABLET PO SCH (09:11)
[2018-03-10] MEDS: POLYETHYLENE GLYCOL 3350 17 GM POWD.PACK PO SCH (11:05)
[2018-03-10] MEDS: traZODone HCL 50 MG TABLET PO SCH (20:49)
[2018-03-11] MEDS ORDERED: 0.9 % SODIUM CHLORIDE 100 ML IV ONE (03:50)
[2018-03-11] MEDS: oxyCODONE HCL 5 MG TABLET PO PRN ×4 (04:08→22:51)
[2018-03-11] MEDS: ceFAZolin SODIUM 1 GM VIAL IV SCH ×3 (05:18→21:34)
[2018-03-11] MEDS: HEPARIN SODIUM PORCINE IV SCH ×3 (06:19→22:09)
[2018-03-11] MEDS: CALCIUM CARB 500 MG TAB.CHEW PO SCH ×2 (09:29→21:00)
[2018-03-11] MEDS: CARVEDILOL 12.5 MG TABLET PO SCH ×2 (09:29→21:01)
[2018-03-11] MEDS: ESCITALOPRAM OXALATE 10 MG TABLET PO SCH (09:30)
[2018-03-11] MEDS: ANASTROZOLE 1 MG TABLET PO SCH (09:30)
[2018-03-11] MEDS: amLODIPine BESYLATE 5 MG TABLET PO SCH (09:30)
[2018-03-11] MEDS: CHOLECALCIFEROL (VIT D3) 1,000 UNIT TABLET PO SCH ×2 (09:30→21:02)
[2018-03-11] MEDS: CALCITONIN SALMON SYNTHETIC NS SCH (09:30)
[2018-03-11] MEDS: LACTOBACILLUS ACIDOPHILUS CAPS PO SCH ×2 (09:31→21:01)
[2018-03-11] MEDS: MULTIVITAMIN 1 EACH TABLET PO SCH (09:31)
[2018-03-11] MEDS: DICYCLOMINE HCL 20 MG TABLET PO SCH ×4 (09:45→21:05)
[2018-03-11] MEDS: fentaNYL 25 MCG PATCH TD SCH (09:46)
[2018-03-11] MEDS: CYCLOBENZAPRINE HCL 5 MG TABLET PO PRN ×2 (09:46→21:00)
[2018-03-11] MEDS: BENAZEPRIL HCL 10 MG TABLET PO SCH (09:47)
[2018-03-11] MEDS: POLYETHYLENE GLYCOL 3350 17 GM POWD.PACK PO SCH (12:06)
[2018-03-11] MEDS: ONDANSETRON HCL 4 MG TAB.RAPDIS PO PRN (19:56)
[2018-03-11] MEDS: traZODone HCL 50 MG TABLET PO SCH (20:59)
[2018-03-12] MEDS: ceFAZolin SODIUM 1 GM VIAL IV SCH ×3 (05:32→21:41)
[2018-03-12] MEDS: HEPARIN SODIUM PORCINE IV SCH ×3 (05:33→22:06)
[2018-03-12] MEDS: CALCIUM CARB 500 MG TAB.CHEW PO SCH ×2 (09:13→21:26)
[2018-03-12] MEDS: CHOLECALCIFEROL (VIT D3) 1,000 UNIT TABLET PO SCH ×2 (09:14→21:26)
[2018-03-12] MEDS: CARVEDILOL 12.5 MG TABLET PO SCH ×2 (09:14→21:26)
[2018-03-12] MEDS: ANASTROZOLE 1 MG TABLET PO SCH (09:14)
[2018-03-12] MEDS: MULTIVITAMIN 1 EACH TABLET PO SCH (09:15)
[2018-03-12] MEDS: ESCITALOPRAM OXALATE 10 MG TABLET PO SCH (09:15)
[2018-03-12] MEDS: amLODIPine BESYLATE 5 MG TABLET PO SCH (09:15)
[2018-03-12] MEDS: LACTOBACILLUS ACIDOPHILUS CAPS PO SCH ×2 (09:15→21:26)
[2018-03-12] MEDS: CALCITONIN SALMON SYNTHETIC NS SCH (09:15)
[2018-03-12] MEDS: oxyCODONE HCL 5 MG TABLET PO PRN ×3 (09:29→21:34)
[2018-03-12] MEDS: DICYCLOMINE HCL 20 MG TABLET PO SCH ×4 (09:29→21:27)
[2018-03-12] MEDS: BENAZEPRIL HCL 10 MG TABLET PO SCH (09:30)
[2018-03-12] MEDS ORDERED: fentaNYL 50 MCG PATCH TD ONE (09:34)
[2018-03-12] MEDS: fentaNYL 50 MCG PATCH TD SCH (09:45)
[2018-03-12] MEDS: fentaNYL 25 MCG PATCH TD SCH (09:48)
--- NOTE | 2018-03-12 11:46 | Inpatient Progress Note ---
Subjective - Required Recertification Statement I anticipate X number of days because-include discharge plan: 10 days - Review of Systems Events since last encounter: Patient is doing better today. Still is having some pain associated with her compression fracture. Pain is worse with trying to get up. Patient is still unsteady with her gait and needs assistance with any ambulation. States that she has been running a low grade fever at times. Complaining of some allergic rhinnitis problems Gastrointestinal: Nausea (mild at times), Other (Having BM). Denies: Vomiting, Abdominal Pain Musculoskeletal: Back Pain Neurological: Weakness Objective - Exam Vitals and I&O: Vital Signs Temp 97.8 F 03/12/18 08:12 Pulse 92 H 03/12/18 08:12 Resp 20 03/12/18 08:12 BP 135/83 03/12/18 08:12 Pulse Ox 97 03/12/18 08:12 Intake & Output 03/11/18 03/11/18 03/12/18 11:59 23:59 11:59 Intake Total 120 1100 340 Balance 120 1100 340 Intake: IV 210 100 Right Subclavian 210 100 Oral 120 890 240 Other: Voiding Method Toilet Toilet Toilet # Voids 2 1 General: Alert, Oriented to Person, Oriented to Place, Oriented to Time, Cooperative, No acute distress Neck: Supple Lungs: Clear to auscultation, Normal air movement, Speaks full Sentences. No: Wheezes, Rales, Rhonchi Cardiovascular: Regular rate, Normal S1, Normal S2, No murmurs Abdomen: Normal bowel sounds, Soft, No tenderness Extremities: Other (mild edema) Skin: Normal, [place], Warm, Dry - Results Results: Laboratory Results WBC 8.00 K/ul (4.00-12.00) 03/07/18 12:05 RBC 2.98 M/ul (3.90-5.20) L 03/07/18 12:05 Hgb 8.7 g/dL (12.0-16.0) L 03/07/18 12:05 Hct 28.3 % (34.5-46.5) L 03/07/18 12:05 MCV 95.0 fl (80.0-100.0) 03/07/18 12:05 MCH 29.1 pg (28.0-34.0) 03/07/18 12:05 MCHC 30.6 g/dL (30.0-36.0) 03/07/18 12:05 RDW 15.2 % (11.3-14.3) H 03/07/18 12:05 Plt Count 307 K/mm3 (130-400) 03/07/18 12:05 Neut % (Auto) 70.6 % (39.0-79.0) 03/07/18 12:05 Lymph % (Auto) 16.7 % (16.0-50.0) 03/07/18 12:05 [place] % (Auto) 7.5 % (0.0-11.0) 03/07/18 12:05 Eos % (Auto) 2.5 % (0.0-6.8) 03/07/18 12:05 Baso % (Auto) 0.4 (0.0-1.5) 03/07/18 12:05 Neut # (Auto) 5.6 # k/uL (1.4-7.7) 03/07/18 12:05 Lymph # (Auto) 1.3 # k/uL (0.6-4.0) 03/07/18 12:05 [place] # (Auto) 0.6 # k/uL (0.0-0.9) 03/07/18 12:05 Eos # (Auto) 0.2 # k/uL (0.0-0.6) 03/07/18 12:05 Baso # (Auto) 0.0 # k/uL (0.0-0.5) 03/07/18 12:05 Reactive Lymphs % 2.3 % (0.0-5.0) 03/07/18 12:05 Reactive Lymphs # 0.2 # k/uL (0.0-0.8) 03/07/18 12:05 PT 13.0 Seconds (9.4-11.6) H 03/07/18 12:05 INR 1.24 (0.9-1.2) H 03/07/18 12:05 APTT 27.0 Seconds (24.5-32.8) 03/07/18 12:05 Assessment/Plan - Assessment/Plan (1) Allergic rhinitis Status: Acute Current Visit: Yes Plan: Will start Benadryl PRN since that has helped her in the past (2) Bacteremia associated with intravascular line Status: Acute Current Visit: Yes Plan: Continue with IV antibiotics (3) Compression fracture of L1 lumbar vertebra Status: Acute Current Visit: No Qualifiers: Encounter type: initial encounter Fracture type: closed Qualified Code(s) : S32.010A - Wedge compression fracture of first lumbar vertebra, initial encounter for closed fracture Assessment: Continue with current pain medication. Patient advised that we will need to try to start tapering pain medication soon. Will increase cyclobenzaprine for muscle spasms prN.
[2018-03-12] MEDS: POLYETHYLENE GLYCOL 3350 17 GM POWD.PACK PO SCH ×2 (12:36→17:57)
[2018-03-12] MEDS: diphenhydrAMINE HCL 25 MG TABLET PO PRN ×2 (12:54→21:26)
[2018-03-12] MEDS: ALPRAZOLAM 0.5 MG TABLET PO PRN ×2 (14:12→21:26)
--- NOTE | 2018-03-12 14:40 | Inpatient Progress Note ---
Subjective - Required Recertification Statement I anticipate X number of days because-include discharge plan: 2 weeks - Review of Systems Subjective: tried to start to taper pain medication but patient states that she was worse off and had to increase it again. Objective - Exam Vitals and I&O: Vital Signs Temp 97.8 F 03/12/18 08:12 Pulse 92 H 03/12/18 08:12 Resp 20 03/12/18 08:12 BP 135/83 03/12/18 08:12 Pulse Ox 97 03/12/18 08:12 Intake & Output 03/11/18 03/12/18 03/12/18 23:59 11:59 23:59 Intake Total 1100 340 240 Balance 1100 340 240 Intake: IV 210 100 Right Subclavian 210 100 Oral 890 240 240 Other: Voiding Method Toilet Toilet # Voids 1 # Bowel Movements 0 General: Alert, Oriented to Person, Oriented to Place, Oriented to Time, Cooperative, Mild distress Lungs: Clear to auscultation, Normal air movement, Speaks full Sentences. No: Wheezes, Rales, Rhonchi Cardiovascular: Regular rate, Normal S1, Normal S2, No murmurs Abdomen: Normal bowel sounds, Soft, No tenderness, No hepatospenomegaly, No masses Other physical findings: Tenderness tot he area over the burst compression fracture. - Results Results: Laboratory Results WBC 8.00 K/ul (4.00-12.00) 03/07/18 12:05 RBC 2.98 M/ul (3.90-5.20) L 03/07/18 12:05 Hgb 8.7 g/dL (12.0-16.0) L 03/07/18 12:05 Hct 28.3 % (34.5-46.5) L 03/07/18 12:05 MCV 95.0 fl (80.0-100.0) 03/07/18 12:05 MCH 29.1 pg (28.0-34.0) 03/07/18 12:05 MCHC 30.6 g/dL (30.0-36.0) 03/07/18 12:05 RDW 15.2 % (11.3-14.3) H 03/07/18 12:05 Plt Count 307 K/mm3 (130-400) 03/07/18 12:05 Neut % (Auto) 70.6 % (39.0-79.0) 03/07/18 12:05 Lymph % (Auto) 16.7 % (16.0-50.0) 03/07/18 12:05 [place] % (Auto) 7.5 % (0.0-11.0) 03/07/18 12:05 Eos % (Auto) 2.5 % (0.0-6.8) 03/07/18 12:05 Baso % (Auto) 0.4 (0.0-1.5) 03/07/18 12:05 Neut # (Auto) 5.6 # k/uL (1.4-7.7) 03/07/18 12:05 Lymph # (Auto) 1.3 # k/uL (0.6-4.0) 03/07/18 12:05 [place] # (Auto) 0.6 # k/uL (0.0-0.9) 03/07/18 12:05 Eos # (Auto) 0.2 # k/uL (0.0-0.6) 03/07/18 12:05 Baso # (Auto) 0.0 # k/uL (0.0-0.5) 03/07/18 12:05 Reactive Lymphs % 2.3 % (0.0-5.0) 03/07/18 12:05 Reactive Lymphs # 0.2 # k/uL (0.0-0.8) 03/07/18 12:05 PT 13.0 Seconds (9.4-11.6) H 03/07/18 12:05 INR 1.24 (0.9-1.2) H 03/07/18 12:05 APTT 27.0 Seconds (24.5-32.8) 03/07/18 12:05 Assessment/Plan - Assessment/Plan (1) Compression fracture of L1 lumbar vertebra Status: Acute Current Visit: No Qualifiers: Encounter type: initial encounter Fracture type: closed Qualified Code(s) : S32.010A - Wedge compression fracture of first lumbar vertebra, initial encounter for closed fracture Assessment: continue with present medications, PT and OT (2) Bacteremia associated with intravascular line Status: Acute Current Visit: Yes Assessment: continue ABX (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
[2018-03-12] MEDS: traZODone HCL 50 MG TABLET PO SCH (21:26)
[2018-03-13] MEDS: ceFAZolin SODIUM 1 GM VIAL IV SCH ×3 (05:50→21:15)
[2018-03-13] MEDS: HEPARIN SODIUM PORCINE IV SCH ×3 (06:24→21:15)
[2018-03-13] MEDS: oxyCODONE HCL 5 MG TABLET PO PRN ×2 (08:47→20:19)
[2018-03-13] MEDS: ANASTROZOLE 1 MG TABLET PO SCH (08:56)
[2018-03-13] MEDS: CARVEDILOL 12.5 MG TABLET PO SCH ×2 (08:57→20:18)
[2018-03-13] MEDS: DICYCLOMINE HCL 20 MG TABLET PO SCH ×4 (08:57→20:20)
[2018-03-13] MEDS: LACTOBACILLUS ACIDOPHILUS CAPS PO SCH ×2 (08:57→20:23)
[2018-03-13] MEDS: MULTIVITAMIN 1 EACH TABLET PO SCH (08:58)
[2018-03-13] MEDS: CALCITONIN SALMON SYNTHETIC NS SCH (08:58)
[2018-03-13] MEDS: amLODIPine BESYLATE 5 MG TABLET PO SCH (08:58)
[2018-03-13] MEDS: ESCITALOPRAM OXALATE 10 MG TABLET PO SCH (08:58)
[2018-03-13] MEDS: BENAZEPRIL HCL 10 MG TABLET PO SCH (08:58)
[2018-03-13] MEDS: CALCIUM CARB 500 MG TAB.CHEW PO SCH ×2 (08:59→20:18)
[2018-03-13] MEDS: CHOLECALCIFEROL (VIT D3) 1,000 UNIT TABLET PO SCH ×2 (08:59→20:19)
[2018-03-13] MEDS: POLYETHYLENE GLYCOL 3350 17 GM POWD.PACK PO SCH (11:35)
[2018-03-13] MEDS ORDERED: NYSTATIN POWDER BOTTLE TP SCH (16:00)
[2018-03-13] MEDS: traZODone HCL 50 MG TABLET PO SCH (20:18)
[2018-03-13] MEDS: ONDANSETRON HCL 4 MG TAB.RAPDIS PO PRN (20:20)
[2018-03-13] MEDS: NYSTATIN POWDER BOTTLE TP SCH (20:23)
[2018-03-14] MEDS: ceFAZolin SODIUM 1 GM VIAL IV SCH ×3 (05:11→20:54)
[2018-03-14] MEDS: HEPARIN SODIUM PORCINE IV SCH ×3 (05:11→20:55)
[2018-03-14] MEDS: CARVEDILOL 12.5 MG TABLET PO SCH ×2 (08:53→20:55)
[2018-03-14] MEDS: CALCIUM CARB 500 MG TAB.CHEW PO SCH ×2 (08:53→20:56)
[2018-03-14] MEDS: CHOLECALCIFEROL (VIT D3) 1,000 UNIT TABLET PO SCH ×2 (08:54→20:56)
[2018-03-14] MEDS: ESCITALOPRAM OXALATE 10 MG TABLET PO SCH (08:55)
[2018-03-14] MEDS: ANASTROZOLE 1 MG TABLET PO SCH (08:55)
[2018-03-14] MEDS: amLODIPine BESYLATE 5 MG TABLET PO SCH (08:56)
[2018-03-14] MEDS: MULTIVITAMIN 1 EACH TABLET PO SCH (08:57)
[2018-03-14] MEDS: LACTOBACILLUS ACIDOPHILUS CAPS PO SCH ×2 (08:58→20:55)
[2018-03-14] MEDS: DICYCLOMINE HCL 20 MG TABLET PO SCH ×4 (08:59→20:55)
[2018-03-14] MEDS: NYSTATIN POWDER BOTTLE TP SCH ×2 (09:00→20:56)
[2018-03-14] MEDS: oxyCODONE HCL 5 MG TABLET PO PRN ×2 (09:01→18:20)
[2018-03-14] MEDS: BENAZEPRIL HCL 10 MG TABLET PO SCH (09:08)
[2018-03-14] MEDS ORDERED: fentaNYL 50 MCG PATCH TD ONE (09:20)
[2018-03-14] MEDS: CALCITONIN SALMON SYNTHETIC NS SCH (09:34)
[2018-03-14] MEDS: POLYETHYLENE GLYCOL 3350 17 GM POWD.PACK PO SCH (10:37)
[2018-03-14] MEDS: CYCLOBENZAPRINE HCL 5 MG TABLET PO PRN (10:37)
[2018-03-14] MEDS: ALPRAZOLAM 0.5 MG TABLET PO PRN (12:21)
[2018-03-14] MEDS ORDERED: 0.9 % SODIUM CHLORIDE 100 ML IV ONE (20:38)
[2018-03-14] MEDS: traZODone HCL 50 MG TABLET PO SCH (20:55)
[2018-03-15] MEDS: ceFAZolin SODIUM 1 GM VIAL IV SCH ×3 (05:00→20:57)
[2018-03-15] MEDS ORDERED: 0.9 % SODIUM CHLORIDE 100 ML IV ONE ×3 (05:29→20:55)
[2018-03-15] MEDS: HEPARIN SODIUM PORCINE IV SCH ×3 (06:22→20:58)
[2018-03-15] MEDS: oxyCODONE HCL 5 MG TABLET PO PRN ×2 (08:32→16:37)
[2018-03-15] MEDS: CALCIUM CARB 500 MG TAB.CHEW PO SCH ×2 (08:53→20:47)
[2018-03-15] MEDS: CHOLECALCIFEROL (VIT D3) 1,000 UNIT TABLET PO SCH ×2 (08:54→20:47)
[2018-03-15] MEDS: CARVEDILOL 12.5 MG TABLET PO SCH ×2 (08:54→20:47)
[2018-03-15] MEDS: CALCITONIN SALMON SYNTHETIC NS SCH (08:55)
[2018-03-15] MEDS: ESCITALOPRAM OXALATE 10 MG TABLET PO SCH (08:55)
[2018-03-15] MEDS: amLODIPine BESYLATE 5 MG TABLET PO SCH (08:56)
[2018-03-15] MEDS: MULTIVITAMIN 1 EACH TABLET PO SCH (08:56)
[2018-03-15] MEDS: BENAZEPRIL HCL 10 MG TABLET PO SCH (08:56)
[2018-03-15] MEDS: LACTOBACILLUS ACIDOPHILUS CAPS PO SCH ×2 (08:57→20:59)
[2018-03-15] MEDS: DICYCLOMINE HCL 20 MG TABLET PO SCH ×3 (08:58→20:48)
[2018-03-15] MEDS: NYSTATIN POWDER BOTTLE TP SCH ×2 (08:58→20:58)
[2018-03-15] MEDS: ANASTROZOLE 1 MG TABLET PO SCH (08:59)
[2018-03-15] MEDS: fentaNYL 50 MCG PATCH TD SCH (08:59)
[2018-03-15] MEDS: POLYETHYLENE GLYCOL 3350 17 GM POWD.PACK PO SCH (11:16)
[2018-03-15] MEDS ORDERED: ceFAZolin SODIUM 1 GM VIAL ONE (13:43)
[2018-03-15] MEDS: traZODone HCL 50 MG TABLET PO SCH (20:46)
[2018-03-16] MEDS ORDERED: 0.9 % SODIUM CHLORIDE 100 ML IV ONE ×3 (04:01→20:05)
[2018-03-16] MEDS: ceFAZolin SODIUM 1 GM VIAL IV SCH ×3 (05:42→21:21)
[2018-03-16] MEDS: HEPARIN SODIUM PORCINE IV SCH ×3 (05:44→21:35)
[2018-03-16] MEDS: CARVEDILOL 12.5 MG TABLET PO SCH ×2 (08:39→21:33)
[2018-03-16] MEDS: CALCIUM CARB 500 MG TAB.CHEW PO SCH ×2 (08:39→21:33)
[2018-03-16] MEDS: ESCITALOPRAM OXALATE 10 MG TABLET PO SCH (08:40)
[2018-03-16] MEDS: ANASTROZOLE 1 MG TABLET PO SCH (08:40)
[2018-03-16] MEDS: CALCITONIN SALMON SYNTHETIC NS SCH (08:40)
[2018-03-16] MEDS: CHOLECALCIFEROL (VIT D3) 1,000 UNIT TABLET PO SCH ×2 (08:40→21:34)
[2018-03-16] MEDS: MULTIVITAMIN 1 EACH TABLET PO SCH (08:41)
[2018-03-16] MEDS: amLODIPine BESYLATE 5 MG TABLET PO SCH (08:41)
[2018-03-16] MEDS: BENAZEPRIL HCL 10 MG TABLET PO SCH (08:41)
[2018-03-16] MEDS: DICYCLOMINE HCL 20 MG TABLET PO SCH ×2 (08:42→12:54)
[2018-03-16] MEDS: NYSTATIN POWDER BOTTLE TP SCH ×2 (08:43→21:43)
[2018-03-16] MEDS: oxyCODONE HCL 5 MG TABLET PO PRN ×2 (08:45→18:10)
[2018-03-16] MEDS: LACTOBACILLUS ACIDOPHILUS CAPS PO SCH ×2 (08:45→21:34)
[2018-03-16] MEDS: LIDOCAINE 5% ADH..PATCH TP SCH (08:46)
[2018-03-16] MEDS: POLYETHYLENE GLYCOL 3350 17 GM POWD.PACK PO SCH (11:04)
[2018-03-16] MEDS: ONDANSETRON HCL 4 MG TAB.RAPDIS PO PRN (13:30)
[2018-03-16] MEDS: traZODone HCL 50 MG TABLET PO SCH (21:32)
[2018-03-16] MEDS: ALPRAZOLAM 0.5 MG TABLET PO PRN (21:37)
[2018-03-16] MEDS: CYCLOBENZAPRINE HCL 5 MG TABLET PO PRN (21:38)
[2018-03-17] MEDS ORDERED: 0.9 % SODIUM CHLORIDE 100 ML IV ONE (01:14)
[2018-03-17] MEDS: ceFAZolin SODIUM 1 GM VIAL IV SCH ×3 (05:16→20:45)
[2018-03-17] MEDS: HEPARIN SODIUM PORCINE IV SCH ×3 (06:36→20:46)
[2018-03-17] MEDS: amLODIPine BESYLATE 5 MG TABLET PO SCH (09:03)
[2018-03-17] MEDS: CALCIUM CARB 500 MG TAB.CHEW PO SCH ×2 (09:03→20:38)
[2018-03-17] MEDS: CHOLECALCIFEROL (VIT D3) 1,000 UNIT TABLET PO SCH ×2 (09:03→20:39)
[2018-03-17] MEDS: LACTOBACILLUS ACIDOPHILUS CAPS PO SCH ×2 (09:03→20:37)
[2018-03-17] MEDS: ESCITALOPRAM OXALATE 10 MG TABLET PO SCH (09:03)
[2018-03-17] MEDS: oxyCODONE HCL 5 MG TABLET PO PRN ×2 (09:04→17:54)
[2018-03-17] MEDS: CALCITONIN SALMON SYNTHETIC NS SCH (09:04)
[2018-03-17] MEDS: CARVEDILOL 12.5 MG TABLET PO SCH ×2 (09:04→20:36)
[2018-03-17] MEDS: ANASTROZOLE 1 MG TABLET PO SCH (09:04)
[2018-03-17] MEDS: MULTIVITAMIN 1 EACH TABLET PO SCH (09:04)
[2018-03-17] MEDS: NYSTATIN POWDER BOTTLE TP SCH ×2 (09:07→20:38)
[2018-03-17] MEDS: BENAZEPRIL HCL 10 MG TABLET PO SCH (09:09)
[2018-03-17] MEDS: diphenhydrAMINE HCL 25 MG TABLET PO PRN (09:10)
[2018-03-17] MEDS: LIDOCAINE 5% ADH..PATCH TP SCH (09:11)
[2018-03-17] MEDS: POLYETHYLENE GLYCOL 3350 17 GM POWD.PACK PO SCH ×2 (13:14→17:26)
[2018-03-17] MEDS: ONDANSETRON HCL 4 MG TAB.RAPDIS PO PRN (18:08)
[2018-03-17] MEDS: CYCLOBENZAPRINE HCL 5 MG TABLET PO PRN (20:45)
[2018-03-17] MEDS: traZODone HCL 50 MG TABLET PO SCH (20:45)
[2018-03-17] MEDS: ALPRAZOLAM 0.5 MG TABLET PO PRN (20:45)
[2018-03-18] MEDS: HEPARIN SODIUM PORCINE IV SCH (05:30)
[2018-03-18] MEDS: ceFAZolin SODIUM 1 GM VIAL IV SCH (05:30)
[2018-03-18] MEDS: CALCIUM CARB 500 MG TAB.CHEW PO SCH ×2 (08:18→21:20)
[2018-03-18] MEDS: ANASTROZOLE 1 MG TABLET PO SCH (08:18)
[2018-03-18] MEDS: CHOLECALCIFEROL (VIT D3) 1,000 UNIT TABLET PO SCH ×2 (08:18→21:21)
[2018-03-18] MEDS: CARVEDILOL 12.5 MG TABLET PO SCH ×2 (08:18→21:19)
[2018-03-18] MEDS: amLODIPine BESYLATE 5 MG TABLET PO SCH (08:19)
[2018-03-18] MEDS: MULTIVITAMIN 1 EACH TABLET PO SCH (08:19)
[2018-03-18] MEDS: ESCITALOPRAM OXALATE 10 MG TABLET PO SCH (08:19)
[2018-03-18] MEDS: CALCITONIN SALMON SYNTHETIC NS SCH (08:19)
[2018-03-18] MEDS: LACTOBACILLUS ACIDOPHILUS CAPS PO SCH ×2 (08:20→21:20)
[2018-03-18] MEDS: oxyCODONE HCL 5 MG TABLET PO PRN ×2 (08:20→14:22)
[2018-03-18] MEDS: BENAZEPRIL HCL 10 MG TABLET PO SCH (08:25)
[2018-03-18] MEDS: fentaNYL 50 MCG PATCH TD SCH (08:26)
[2018-03-18] MEDS: LIDOCAINE 5% ADH..PATCH TP SCH (08:26)
[2018-03-18] MEDS: NYSTATIN POWDER BOTTLE TP SCH (08:32)
[2018-03-18] MEDS: POLYETHYLENE GLYCOL 3350 17 GM POWD.PACK PO SCH (11:39)
--- NOTE | 2018-03-18 17:16 | Inpatient Progress Note ---
Subjective - Required Recertification Statement I anticipate X number of days because-include discharge plan: 7 days - Review of Systems Events since last encounter: Patient developed a reference to the right lower abdominal area. Patient states she does have a little bit of discomfort associated with it. Patient feels better physical and occupational therapy is help with her. Patient does seem to be improving with her ambulation and ability to move around. Patient denies any comp patient issues at this time. Subjective: tried to start to taper pain medication but patient states that she was worse off and had to increase it again. General: Denies: Chills Cardiovascular: Denies: Chest Pain, Palpitations Gastrointestinal: Denies: Nausea, Vomiting, Abdominal Pain, Melena, Hematochezia Objective - Exam Vitals and I&O: Vital Signs Temp 98.0 F 03/18/18 07:58 Pulse 79 03/18/18 07:58 Resp 18 03/18/18 07:58 BP 134/73 03/18/18 07:58 Pulse Ox 99 03/18/18 07:58 Intake & Output 03/17/18 03/18/18 03/18/18 23:59 11:59 23:59 Intake Total 420 100 60 Balance 420 100 60 Intake: IV 100 100 Right Subclavian 100 100 Oral 320 0 60 Other: Voiding Method Toilet Toilet # Voids 1 # Bowel Movements 0 0 General: Alert, Oriented to Person, Oriented to Place, Oriented to Time, Cooperative, Mild distress Neck: Supple Lungs: Clear to auscultation, Normal air movement, Speaks full Sentences, Respiratory Distress. No: Wheezes, Rales, Rhonchi Cardiovascular: Regular rate, Normal S1, Normal S2, No murmurs Abdomen: Normal bowel sounds, Soft, No tenderness Skin: Other (red rais spotty rash with ? developing vesicules to the right lower abd area) - Results Results: Laboratory Results WBC 8.00 K/ul (4.00-12.00) 03/07/18 12:05 RBC 2.98 M/ul (3.90-5.20) L 03/07/18 12:05 Hgb 8.7 g/dL (12.0-16.0) L 03/07/18 12:05 Hct 28.3 % (34.5-46.5) L 03/07/18 12:05 MCV 95.0 fl (80.0-100.0) 03/07/18 12:05 MCH 29.1 pg (28.0-34.0) 03/07/18 12:05 MCHC 30.6 g/dL (30.0-36.0) 03/07/18 12:05 RDW 15.2 % (11.3-14.3) H 03/07/18 12:05 Plt Count 307 K/mm3 (130-400) 03/07/18 12:05 Neut % (Auto) 70.6 % (39.0-79.0) 03/07/18 12:05 Lymph % (Auto) 16.7 % (16.0-50.0) 03/07/18 12:05 [place] % (Auto) 7.5 % (0.0-11.0) 03/07/18 12:05 Eos % (Auto) 2.5 % (0.0-6.8) 03/07/18 12:05 Baso % (Auto) 0.4 (0.0-1.5) 03/07/18 12:05 Neut # (Auto) 5.6 # k/uL (1.4-7.7) 03/07/18 12:05 Lymph # (Auto) 1.3 # k/uL (0.6-4.0) 03/07/18 12:05 [place] # (Auto) 0.6 # k/uL (0.0-0.9) 03/07/18 12:05 Eos # (Auto) 0.2 # k/uL (0.0-0.6) 03/07/18 12:05 Baso # (Auto) 0.0 # k/uL (0.0-0.5) 03/07/18 12:05 Reactive Lymphs % 2.3 % (0.0-5.0) 03/07/18 12:05 Reactive Lymphs # 0.2 # k/uL (0.0-0.8) 03/07/18 12:05 PT 13.0 Seconds (9.4-11.6) H 03/07/18 12:05 INR 1.24 (0.9-1.2) H 03/07/18 12:05 APTT 27.0 Seconds (24.5-32.8) 03/07/18 12:05 Assessment/Plan - Assessment/Plan (1) Compression fracture of L1 lumbar vertebra Status: Acute Current Visit: No Qualifiers: Encounter type: initial encounter Fracture type: closed Qualified Code(s) : S32.010A - Wedge compression fracture of first lumbar vertebra, initial encounter for closed fracture Assessment: Pain improved some, will start to taper pain medication (2) Bacteremia associated with intravascular line Status: Acute Current Visit: Yes Assessment: Has finish antibioitcs (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
[2018-03-18] MEDS ORDERED: ACYCLOVIR 200 MG CAPSULE PO SCH (18:00)
[2018-03-18] MEDS: fentaNYL 25 MCG PATCH TD SCH (18:36)
[2018-03-18] MEDS: traZODone HCL 50 MG TABLET PO SCH (21:20)
[2018-03-18] MEDS: ALPRAZOLAM 0.5 MG TABLET PO PRN (21:25)
[2018-03-19] MEDS: NYSTATIN POWDER BOTTLE TP SCH ×4 (05:48→23:22)
[2018-03-19] MEDS ORDERED: HEPARIN SODIUM PORCINE IV ONE (07:23)
[2018-03-19 08:21] LABS: BASOPHILS % 0.5 (0.0-1.5); EOSINOPHILS % 6.6 % (0.0-6.8); MEAN CORPUSCULAR HEMOGLOBIN 29.1 pg (28.0-34.0); MEAN CORPUSCULAR VOLUME 95.7 fl (80.0-100.0); MONOCYTES % 6.8 % (0.0-11.0); NEUTROPHILS # 2.4 # k/uL (1.4-7.7)
[2018-03-19] MEDS: oxyCODONE HCL 5 MG TABLET PO PRN ×3 (08:27→23:24)
[2018-03-19] MEDS: ANASTROZOLE 1 MG TABLET PO SCH (08:30)
[2018-03-19] MEDS: CARVEDILOL 12.5 MG TABLET PO SCH ×2 (08:30→20:51)
[2018-03-19] MEDS: ESCITALOPRAM OXALATE 10 MG TABLET PO SCH (08:31)
[2018-03-19] MEDS: CALCITONIN SALMON SYNTHETIC NS SCH (08:31)
[2018-03-19] MEDS: CALCIUM CARB 500 MG TAB.CHEW PO SCH ×2 (08:33→20:53)
[2018-03-19] MEDS: MULTIVITAMIN 1 EACH TABLET PO SCH (08:33)
[2018-03-19] MEDS: amLODIPine BESYLATE 5 MG TABLET PO SCH (08:33)
[2018-03-19] MEDS: CHOLECALCIFEROL (VIT D3) 1,000 UNIT TABLET PO SCH ×2 (08:33→20:53)
[2018-03-19] MEDS: BENAZEPRIL HCL 10 MG TABLET PO SCH (08:37)
[2018-03-19] MEDS: LACTOBACILLUS ACIDOPHILUS CAPS PO SCH ×2 (08:38→20:51)
[2018-03-19 08:54] LABS: eGFR (African) > 60; eGFR (Non-African) > 60
[2018-03-19] MEDS ORDERED: PANTOPRAZOLE SODIUM 40 MG TABLET PO ONE (09:41)
[2018-03-19] MEDS ORDERED: PANTOPRAZOLE SODIUM 40 MG TABLET ONE (10:52)
[2018-03-19] MEDS: POTASSIUM CHLORIDE 20 MEQ TABLET.ER PO SCH ×2 (10:54→20:52)
[2018-03-19] MEDS: POLYETHYLENE GLYCOL 3350 17 GM POWD.PACK PO SCH (12:36)
[2018-03-19] MEDS: DICYCLOMINE HCL 20 MG TABLET PO PRN (14:43)
[2018-03-19] MEDS: traZODone HCL 50 MG TABLET PO SCH (20:52)
[2018-03-19] MEDS ORDERED: TRIAMCINOLONE CREAM 0.1% 15GM TUBE TP ONE (21:05)
[2018-03-19] MEDS: TRIAMCINOLONE ACETONIDE 0.1% 80GM TUBE TP PRN (23:21)
[2018-03-20] MEDS: PANTOPRAZOLE SODIUM 40 MG TABLET PO SCH (05:59)
[2018-03-20] MEDS ORDERED: HEPARIN SODIUM PORCINE IV ONE (06:30)
[2018-03-20] MEDS ORDERED: PANTOPRAZOLE SODIUM 40 MG TABLET PO SCH (07:00)
[2018-03-20 07:15] LABS: BASOPHILS % 0.4 (0.0-1.5); MEAN CORPUSCULAR HEMOGLOBIN 29.1 pg (28.0-34.0); MEAN CORPUSCULAR VOLUME 95.7 fl (80.0-100.0); MONOCYTES % 7.4 % (0.0-11.0); NEUTROPHILS # 1.8 # k/uL (1.4-7.7)
[2018-03-20 07:23] LABS: eGFR (African) > 60; eGFR (Non-African) > 60
[2018-03-20] MEDS: CALCIUM CARB 500 MG TAB.CHEW PO SCH ×2 (08:21→20:42)
[2018-03-20] MEDS: CHOLECALCIFEROL (VIT D3) 1,000 UNIT TABLET PO SCH ×2 (08:22→20:43)
[2018-03-20] MEDS: CARVEDILOL 12.5 MG TABLET PO SCH ×2 (08:22→20:36)
[2018-03-20] MEDS: ESCITALOPRAM OXALATE 10 MG TABLET PO SCH (08:23)
[2018-03-20] MEDS: CALCITONIN SALMON SYNTHETIC NS SCH (08:23)
[2018-03-20] MEDS: ANASTROZOLE 1 MG TABLET PO SCH (08:23)
[2018-03-20] MEDS: amLODIPine BESYLATE 5 MG TABLET PO SCH (08:24)
[2018-03-20] MEDS: LACTOBACILLUS ACIDOPHILUS CAPS PO SCH ×2 (08:25→20:37)
[2018-03-20] MEDS: MULTIVITAMIN 1 EACH TABLET PO SCH (08:25)
[2018-03-20] MEDS: NYSTATIN POWDER BOTTLE TP SCH ×2 (08:26→20:41)
[2018-03-20] MEDS: DICYCLOMINE HCL 20 MG TABLET PO PRN (08:27)
[2018-03-20] MEDS: BENAZEPRIL HCL 10 MG TABLET PO SCH (08:29)
[2018-03-20] MEDS: POTASSIUM CHLORIDE 20 MEQ TABLET.ER PO SCH ×2 (08:30→20:41)
[2018-03-20] MEDS: oxyCODONE HCL 5 MG TABLET PO PRN ×2 (08:34→15:40)
[2018-03-20] MEDS: ONDANSETRON HCL 4 MG TAB.RAPDIS PO PRN (09:48)
[2018-03-20] MEDS: POLYETHYLENE GLYCOL 3350 17 GM POWD.PACK PO SCH (12:45)
[2018-03-20] MEDS: traZODone HCL 50 MG TABLET PO SCH (20:37)
[2018-03-20] MEDS: TRIAMCINOLONE ACETONIDE 0.1% 80GM TUBE TP PRN (20:43)
[2018-03-20] MEDS: ALPRAZOLAM 0.5 MG TABLET PO PRN (20:43)
[2018-03-21] MEDS: oxyCODONE HCL 5 MG TABLET PO PRN ×3 (01:18→20:07)
[2018-03-21] MEDS ORDERED: HEPARIN SODIUM PORCINE IV ONE (06:12)
[2018-03-21] MEDS: PANTOPRAZOLE SODIUM 40 MG TABLET PO SCH (06:19)
[2018-03-21 07:45] LABS: eGFR (African) > 60; eGFR (Non-African) > 60
[2018-03-21] MEDS: LACTOBACILLUS ACIDOPHILUS CAPS PO SCH ×2 (09:49→20:07)
[2018-03-21] MEDS: ANASTROZOLE 1 MG TABLET PO SCH (09:49)
[2018-03-21] MEDS: CARVEDILOL 12.5 MG TABLET PO SCH ×2 (09:50→20:07)
[2018-03-21] MEDS: CALCITONIN SALMON SYNTHETIC NS SCH (09:50)
[2018-03-21] MEDS: POTASSIUM CHLORIDE 20 MEQ TABLET.ER PO SCH ×2 (09:50→20:07)
[2018-03-21] MEDS: ESCITALOPRAM OXALATE 10 MG TABLET PO SCH (09:51)
[2018-03-21] MEDS: NYSTATIN POWDER BOTTLE TP SCH ×2 (09:51→20:07)
[2018-03-21] MEDS: amLODIPine BESYLATE 5 MG TABLET PO SCH (09:51)
[2018-03-21] MEDS: CHOLECALCIFEROL (VIT D3) 1,000 UNIT TABLET PO SCH ×2 (09:52→20:07)
[2018-03-21] MEDS: MULTIVITAMIN 1 EACH TABLET PO SCH (09:52)
[2018-03-21] MEDS: TRIAMCINOLONE ACETONIDE 0.1% 80GM TUBE TP PRN ×2 (09:56→20:08)
[2018-03-21] MEDS: CALCIUM CARB 500 MG TAB.CHEW PO SCH ×2 (10:15→20:07)
[2018-03-21] MEDS: BENAZEPRIL HCL 10 MG TABLET PO SCH (10:15)
[2018-03-21] MEDS: fentaNYL 25 MCG PATCH TD SCH (10:16)
[2018-03-21] MEDS: ONDANSETRON HCL 4 MG TAB.RAPDIS PO PRN ×2 (13:06→20:28)
[2018-03-21] MEDS: POLYETHYLENE GLYCOL 3350 17 GM POWD.PACK PO SCH (13:07)
[2018-03-21] MEDS: ALPRAZOLAM 0.5 MG TABLET PO PRN (18:12)
[2018-03-21] MEDS: traZODone HCL 50 MG TABLET PO SCH (21:48)
[2018-03-22] MEDS: PANTOPRAZOLE SODIUM 40 MG TABLET PO SCH (06:30)
[2018-03-22] MEDS: oxyCODONE HCL 5 MG TABLET PO PRN ×2 (08:09→19:52)
[2018-03-22] MEDS: DICYCLOMINE HCL 20 MG TABLET PO PRN (08:16)
[2018-03-22] MEDS: ANASTROZOLE 1 MG TABLET PO SCH (09:21)
[2018-03-22] MEDS: CALCITONIN SALMON SYNTHETIC NS SCH (09:21)
[2018-03-22] MEDS: LACTOBACILLUS ACIDOPHILUS CAPS PO SCH ×4 (09:22→21:09)
[2018-03-22] MEDS: POTASSIUM CHLORIDE 20 MEQ TABLET.ER PO SCH ×2 (09:25→21:09)
[2018-03-22] MEDS: CALCIUM CARB 500 MG TAB.CHEW PO SCH ×2 (09:26→21:09)
[2018-03-22] MEDS: amLODIPine BESYLATE 5 MG TABLET PO SCH (09:26)
[2018-03-22] MEDS: ESCITALOPRAM OXALATE 10 MG TABLET PO SCH (09:26)
[2018-03-22] MEDS: CHOLECALCIFEROL (VIT D3) 1,000 UNIT TABLET PO SCH ×2 (09:26→21:10)
[2018-03-22] MEDS: CARVEDILOL 12.5 MG TABLET PO SCH ×2 (09:26→21:11)
[2018-03-22] MEDS: NYSTATIN POWDER BOTTLE TP SCH ×2 (09:37→23:14)
[2018-03-22] MEDS: BENAZEPRIL HCL 10 MG TABLET PO SCH (10:28)
[2018-03-22] MEDS: MULTIVITAMIN 1 EACH TABLET PO SCH (10:28)
[2018-03-22] MEDS: ALPRAZOLAM 0.5 MG TABLET PO PRN (16:38)
[2018-03-22] MEDS: traZODone HCL 50 MG TABLET PO SCH (21:10)
[2018-03-23] MEDS: PANTOPRAZOLE SODIUM 40 MG TABLET PO SCH (06:12)
[2018-03-23] MEDS: DICYCLOMINE HCL 20 MG TABLET PO PRN (06:41)
[2018-03-23] MEDS: ANASTROZOLE 1 MG TABLET PO SCH (08:29)
[2018-03-23] MEDS: POTASSIUM CHLORIDE 20 MEQ TABLET.ER PO SCH ×2 (08:30→21:04)
[2018-03-23] MEDS: CHOLECALCIFEROL (VIT D3) 1,000 UNIT TABLET PO SCH ×2 (08:31→21:04)
[2018-03-23] MEDS: CALCIUM CARB 500 MG TAB.CHEW PO SCH ×2 (08:31→21:03)
[2018-03-23] MEDS: BENAZEPRIL HCL 10 MG TABLET PO SCH (08:36)
[2018-03-23] MEDS: ESCITALOPRAM OXALATE 10 MG TABLET PO SCH (08:36)
[2018-03-23] MEDS: MULTIVITAMIN 1 EACH TABLET PO SCH (08:37)
[2018-03-23] MEDS: amLODIPine BESYLATE 5 MG TABLET PO SCH (08:37)
[2018-03-23] MEDS: ALPRAZOLAM 0.5 MG TABLET PO PRN ×2 (08:38→21:24)
[2018-03-23] MEDS: oxyCODONE HCL 5 MG TABLET PO PRN ×2 (08:38→16:48)
[2018-03-23] MEDS: CARVEDILOL 12.5 MG TABLET PO SCH ×2 (08:43→21:03)
[2018-03-23] MEDS: ONDANSETRON HCL 4 MG TAB.RAPDIS PO PRN ×2 (10:16→16:48)
[2018-03-23] MEDS: TRIAMCINOLONE ACETONIDE 0.1% 80GM TUBE TP PRN ×2 (10:16→21:04)
[2018-03-23] MEDS: NYSTATIN POWDER BOTTLE TP SCH (10:19)
[2018-03-23] MEDS: CALCITONIN SALMON SYNTHETIC NS SCH (10:19)
[2018-03-23] MEDS: POLYETHYLENE GLYCOL 3350 17 GM POWD.PACK PO SCH (11:14)
[2018-03-23] MEDS: traZODone HCL 50 MG TABLET PO SCH (21:03)
[2018-03-23] MEDS: LACTOBACILLUS ACIDOPHILUS CAPS PO SCH (21:04)
[2018-03-24 06:23] LABS: BASOPHILS % 0.5 (0.0-1.5); EOSINOPHILS % 3.6 % (0.0-6.8); MEAN CORPUSCULAR HEMOGLOBIN 28.6 pg (28.0-34.0); MEAN CORPUSCULAR VOLUME 97.1 fl (80.0-100.0); MONOCYTES % 6.5 % (0.0-11.0); NEUTROPHILS # 2.8 # k/uL (1.4-7.7)
[2018-03-24] MEDS: PANTOPRAZOLE SODIUM 40 MG TABLET PO SCH (06:32)
[2018-03-24 06:46] LABS: eGFR (African) > 60; eGFR (Non-African) > 60
[2018-03-24] MEDS: DICYCLOMINE HCL 20 MG TABLET PO PRN (07:57)
[2018-03-24] MEDS: CALCIUM CARB 500 MG TAB.CHEW PO SCH ×2 (08:57→20:36)
[2018-03-24] MEDS: CHOLECALCIFEROL (VIT D3) 1,000 UNIT TABLET PO SCH ×2 (08:57→20:37)
[2018-03-24] MEDS: MULTIVITAMIN 1 EACH TABLET PO SCH (08:57)
[2018-03-24] MEDS: amLODIPine BESYLATE 5 MG TABLET PO SCH (08:58)
[2018-03-24] MEDS: CARVEDILOL 12.5 MG TABLET PO SCH ×2 (08:58→20:36)
[2018-03-24] MEDS: LACTOBACILLUS ACIDOPHILUS CAPS PO SCH ×2 (08:58→20:37)
[2018-03-24] MEDS: CALCITONIN SALMON SYNTHETIC NS SCH (08:58)
[2018-03-24] MEDS: ESCITALOPRAM OXALATE 10 MG TABLET PO SCH (08:58)
[2018-03-24] MEDS: BENAZEPRIL HCL 10 MG TABLET PO SCH (08:59)
[2018-03-24] MEDS: POTASSIUM CHLORIDE 20 MEQ TABLET.ER PO SCH (08:59)
[2018-03-24] MEDS: ANASTROZOLE 1 MG TABLET PO SCH (08:59)
[2018-03-24] MEDS: oxyCODONE HCL 5 MG TABLET PO PRN ×2 (09:13→18:34)
[2018-03-24] MEDS: fentaNYL 25 MCG PATCH TD SCH (09:14)
[2018-03-24] MEDS: POLYETHYLENE GLYCOL 3350 17 GM POWD.PACK PO SCH (11:06)
[2018-03-24] MEDS: FERROUS SULFATE 325 MG TABLET PO SCH (11:26)
[2018-03-24] MEDS: ONDANSETRON HCL 4 MG TAB.RAPDIS PO PRN ×2 (11:27→18:34)
[2018-03-24] MEDS: traZODone HCL 50 MG TABLET PO SCH (20:36)
[2018-03-24] MEDS: ALPRAZOLAM 0.5 MG TABLET PO PRN (20:36)
[2018-03-25] MEDS: PANTOPRAZOLE SODIUM 40 MG TABLET PO SCH (06:25)
[2018-03-25] MEDS: ONDANSETRON HCL 4 MG TAB.RAPDIS PO PRN (06:43)
[2018-03-25] MEDS: DICYCLOMINE HCL 20 MG TABLET PO PRN (07:50)
[2018-03-25] MEDS: LACTOBACILLUS ACIDOPHILUS CAPS PO SCH (08:20)
[2018-03-25] MEDS: ANASTROZOLE 1 MG TABLET PO SCH (08:20)
[2018-03-25] MEDS: CARVEDILOL 12.5 MG TABLET PO SCH (08:20)
[2018-03-25] MEDS: ESCITALOPRAM OXALATE 10 MG TABLET PO SCH (08:21)
[2018-03-25] MEDS: CALCITONIN SALMON SYNTHETIC NS SCH (08:21)
[2018-03-25] MEDS: amLODIPine BESYLATE 5 MG TABLET PO SCH (08:22)
[2018-03-25] MEDS: BENAZEPRIL HCL 10 MG TABLET PO SCH (08:22)
[2018-03-25] MEDS: MULTIVITAMIN 1 EACH TABLET PO SCH (08:23)
[2018-03-25] MEDS: CALCIUM CARB 500 MG TAB.CHEW PO SCH (08:23)
[2018-03-25] MEDS: CHOLECALCIFEROL (VIT D3) 1,000 UNIT TABLET PO SCH (08:23)
[2018-03-25] MEDS: oxyCODONE HCL 5 MG TABLET PO PRN (08:29)
[2018-03-25 09:49] VITALS: BP 122/53
[2018-03-25] MEDS: FERROUS SULFATE 325 MG TABLET PO SCH (10:56)
[2018-03-25] MEDS ORDERED: HEPARIN SODIUM PORCINE IV ONE (11:26)
[2018-03-25] MEDS: POLYETHYLENE GLYCOL 3350 17 GM POWD.PACK PO SCH (12:16)
--- NOTE | 2018-03-25 15:57 | Diagnostic Imaging Report ---
AILYN DEE [facility] [address] [facility].[address] [id number] Report Submission Date: Mar 25, 2018 3:38:13 PM CDT Patient Study Name: SATYA KC Date: Mar 25, 2018 9:58:59 AM CDT Modality Type: US Gender: F Description: [facility] : 51 Institution: [facility] Physician: AILYN DEE Examination: Ultrasound vein bilaterally History: Leg swelling after spinal procedure negative for dvt calf veins not well identified. (Hx) Findings: Sonographic evaluation of the lower extremity venous system from the groin to the popliteal fossa inclusive bilaterally. Normal compressibility. No luminal filling defect. Normal waveforms and response to augmentation. No popliteal region fluid collection. Impression: No evidence for deep venous thrombosis. Electronically signed on Mar 25, 2018 3:38:13 PM CDT by: Shayan VILLAVICENCIO
--- NOTE | 2018-04-21 12:44 | Discharge Summary ---
Discharge Summary - Discharge Sumary History of Present Illness: 62-year-old white female who was recently admitted to the [facility] in clinic for mental status changes and back pain. Patient has fallen several times. Patient was subsequently found to have an L1 burst fracture. Patient did undergo kyphroplasty without much relief of her pain. Patient has been getting oxycodone 5-10mg po q 6 hours, fentanyl 75mcg patch and lidoderm patch to help control her pain. Patient had been on about regimen to help with constipation problems related to the narcotic pain medications. Patient states he still is having a lot of pain with movement. Patient was also found to have a methicillin-resistant staph aureus sepsis with the source being a port to the right anterior chest area. Patient is currently on IV Cefozolin which is to be continued until March 18. Patient did have her port line removed and did have a picc line place for IV anabiotic. Patient was also found to be anemic and was transfused when unit of packed RBCs during her hospital admission. 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 Patient echocardiogram showed a decrease in her ejection fraction from 55% in October to 46% during this admission. Three her course of hospitalization patient became weak with an unsteady gait. It was felt that she would benefit from ongoing physical and occupational therapy was admitted to this institution for that and to complete her IV antibiotic therapy. Condition at Discharge: Stable Home Medications: Ambulatory Orders Medication Instructions Recorded Anastrozole [Arimidex] 1 mg PO DAILY 03/04/18 Calcium Carb 600Mg [Caltrate] 600 mg PO BID 03/04/18 Cholecalciferol [Vitamin D-3] 1,000 unit PO BID 03/04/18 Docusate Sodium [Colace] 100 mg PO PRN PRN 03/04/18 Lidocaine [Lidocare] 1 each TOP DAILY 03/04/18 Lisinopril [Prinivil] 10 mg PO DAILY 03/04/18 Magnesium Citrate [Citrate of 60 ml PO DAILY PRN 03/04/18 Magnesia] Multivit/Folic Acid/Vit K1 1 tab PO DAILY 03/04/18 [One-A-Day Women's 50 Plus Tab] Oxycodone HCl [Oxaydo] 5 mg PO PRN PRN 03/04/18 Polyethylene Glycol 3350 [Miralax] 17 gm PO 1100 03/04/18 Consultations this Visit: None Procedures this Visit: None Allergies/Adverse Reactions: Allergies Allergy/AdvReac Type Severity Reaction Status Date / Time codeine AdvReac Unknown Nausea/Vomi Verified 02/15/18 20:29 ting Discharge Summary: Patient pain that initially limit her ability to participate in physical and occupational therapy. Some adjustments were made with her pain medication which did seem to help. At the time of dismissal patient back was feeling better but continues to have some pain with weight-bearing. Patient did finish her antibiotic therapy for her infected port that was removed during her acute hospital stay. Patient PICC line remained in place per patient request until she could see the infectious disease person again. Patient did have some problems with IBS/constipation. Patient cardiomyopathy appeared to remain stable. Patient did not have any evidence of any congestive heart failure. Patient did not have any chest pain. At the time of dismissal patient was stable was felt that she could continue his further physical and occupational therapy at home through home health. Patient was discharged in stable condition. - Final Diagnosis (1) Compression fracture of L1 lumbar vertebra Problems: At the time to discharge patient back pain was improved although she was still having some issues. (2) Bacteremia associated with intravascular line Problems: Patient finished the course of antibiotic therapy. 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
== END 2018-03-25 12:25 | disposition home health service (06) | DRG 552 ==
LOC: SOUTH 09:54
PROVIDERS: ADMIT Family Medicine; ATTEND Family Medicine
DX: S32.010A Wedge compression fracture of first lumbar vertebra, initial encounter for closed fracture (principal); R78.81 Bacteremia; I42.8 Other cardiomyopathies; K44.9 Diaphragmatic hernia without obstruction or gangrene; Z87.898 Personal history of other specified conditions; Z85.89 Personal history of malignant neoplasm of other organs and systems; I10 Essential (primary) hypertension
CPT/HCPCS: 80048; 80053; 82270; 83540; 85025; 85610; 85730; 93970; J0690; J1650; J2405; A9270; A9270-GY; J1642; Q0163

== ENCOUNTER 2019-07-14 13:30 | Outpatient (CLI) | payer MEDICARE, BC ==
[2019-07-14] MEDS ORDERED: ALBUTEROL SULFATE 2.5 MG/3 ML AMPUL.NEB NEB ONE ×2 (14:00)
== END 2019-07-14 13:45 ==
LOC: RT 13:30
PROVIDERS: ATTEND Family Medicine
DX: R06.09 Other forms of dyspnea (principal)
CPT/HCPCS: 94060